=== PATIENT | male | born 1995 | race Hispanic/Latino ===

== ENCOUNTER 2024-12-21 22:22 | Emergency (ER) | payer SELFPAY ==
[~2024-12-21 22:22] MED LIST: Iopamidol 370 76% 100 ML VIAL ONE
[2024-12-21 22:56] LABS: #Basophils 0.1 thou/uL (0.0-0.2); #Eosinophils 0.1 thou/uL (0.0-0.7); #Lymphocytes 1.6 thou/uL (1.20-3.40); #Monocytes 0.5 thou/uL (0.11-0.59); #Neutrophils 4.9 thou/uL (1.40-6.50); %Basophils 1.3 % (0.0-1.0); %Eosinophils 0.8 % (0.0-10.0); %Lymphocytes 22.3 % (21.0-51.0); %Monocytes 6.6 % (0.0-10.0); %Neutrophils 69.0 % (42.0-75.0); Hematocrit 40.6 % (42.0-52.0); Hemoglobin 15.5 g/dL (14.0-18.0); Mean Corpuscular Hemoglobin 32.9 pg (27.0-31.0); Mean Corpuscular Volume 86.0 fl (78.0-98.0); Platelet Count 244 10x3/uL (130-400); Red Blood Cell (RBC) Count 4.72 mill/uL (4.70-6.10); White Blood Cell (WBC) Count 7.2 10x3/uL (4.8-10.8)
[2024-12-21 23:04] LABS: ALT (SGPT) 60 U/L (Less than 45); AST (SGOT) 54 U/L (11-34); Albumin 4.6 g/dL (3.1-4.5); Alkaline Phosphatase 93 U/L (40-110); Anion Gap 22 mmol/L (10-20); BUN (Urea Nitrogen) 6 mg/dL (8.9-20.6); Bilirubin, Total 0.3 mg/dL (0.3-1.2); Calc. Creatinine Clearance 0 mL/min (70-130); Calcium 8.7 mg/dL (7.8-10.44); Carbon Dioxide 17 mmol/L (22-29); Chloride 106 mmol/L (98-107); Globulin 3.1 g/dL (2.4-3.5); Glucose 225 mg/dL (70-105); Potassium 3.7 mmol/L (3.5-5.1); Sodium 141 mmol/L (136-145)
[2024-12-21 23:07] LABS: Troponin I Less than 0.010 ng/mL (< 0.028)
[2024-12-22 00:39] LABS: Cocaine Metabolite Screen Negative (Negative); THC/Cannabinoid Screen Negative (Negative); Tricyclic Screen Negative (Negative)
[2024-12-22 01:06] LABS: Acetaminophen Less than 10 mcg/mL (Less than 10); Salicylate Less than 8.0 mg/dL (Less than 8.0)
== END 2024-12-22 01:33 | disposition home or self-care (01) ==
LOC: BURERS 22:22
DX: S30.811A Abrasion of abdominal wall, initial encounter (principal); F10.129 Alcohol abuse with intoxication, unspecified; V49.9XXA Car occupant (driver) (passenger) injured in unspecified traffic accident, initial encounter
CPT/HCPCS: 70450; 71260; 72125; 74177; 80053; 80306; 80307; 83880; 84484; 85025; 93005; 96374; G0390; Q9967